=== PATIENT | female | born 1995 | race Caucasian/White ===

== ENCOUNTER 2017-01-15 21:10 | Emergency (ER) | payer OTHER ==
[~2017-01-15] VITALS: Ht 185.4 cm; Wt 100.0 kg
[~2017-01-15 21:10] MED LIST: AMITRIPTYLINE H10 M1 PO; BIRTH CONTROL; GLUCOPHAGE1000 MG PO; NORCO 325 MG-7.1 TAB PO; SENOKOT8.6 MG PO; SYNTHROID0.125 MG/T PO; ZYRTEC5 MG PO
[2017-01-15 21:15] VITALS: BP 112/66; TEMP 98.1
[2017-01-15 23:00] VITALS: PULSE 92
== END 2017-01-15 23:00 | disposition home or self-care (01) ==
LOC: COL.ER 21:10
DX: S93.401A Sprain of unspecified ligament of right ankle, initial encounter (principal); V00.111A Fall from in-line roller-skates, initial encounter; Y92.331 Roller skating rink as the place of occurrence of the external cause; E11.9 Type 2 diabetes mellitus without complications; Z79.84 Long term (current) use of oral hypoglycemic drugs; J45.909 Unspecified asthma, uncomplicated